=== PATIENT | male | born 1985 | race Caucasian/White ===

== ENCOUNTER 2017-10-08 11:45 | Emergency (ER) | payer SELFPAY ==
[~2017-10-08] VITALS: Ht 180.3 cm; Wt 80.0 kg
[2017-10-08 12:25] VITALS: BP 129/82
[2017-10-08] MEDS ORDERED: TETRACAINE 0.5% OPHTH DROPS 4ML OP ONE (12:30)
[2017-10-08] MEDS ORDERED: FLUORESCEIN SODIUM 1MG/STRIP OP ONE (12:30)
== END 2017-10-08 17:01 | disposition home or self-care (01) ==
LOC: ER 13:06
DX: H57.8 Other specified disorders of eye and adnexa (principal); F17.210 Nicotine dependence, cigarettes, uncomplicated
CPT/HCPCS: 99283